=== PATIENT | male | born 1955 | race Caucasian/White ===

== ENCOUNTER → 2019-06-24 | Outpatient (CLI) | payer BC ==
--- NOTE | 2019-06-24 12:48 | US ---
EXAMINATION TYPE: US carotid duplex BILAT DATE OF EXAM: 06/24/2019 COMPARISON: NONE CLINICAL HISTORY: I10 hypertension, R42 dizziness. HTN, dizziness, headaches, left carotid bruit EXAM MEASUREMENTS: RIGHT: Peak Systolic Velocity (PSV) cm/sec ----- Right CCA: 136.6 ----- Right ICA: 126.3 ----- Right ECA: 192.4 ICA/CCA ratio: 0.9 RIGHT: End Diastole cm/sec ----- Right CCA: 26.8 ----- Right ICA: 35.7 ----- Right ECA: 30.7 LEFT: Peak Systolic Velocity (PSV) cm/sec ----- Left CCA: 125.3 ----- Left ICA: 122.1 ----- Left ECA: 157.6 ICA/CCA ratio: 1.0 LEFT: End Diastole cm/sec ----- Left CCA: 30.0 ----- Left ICA: 20.4 ----- Left ECA: 39.7 VERTEBRALS (direction of flow): Right Vertebral: Antegrade Left Vertebral: Antegrade Rhythm: Normal Mild plaque bilateral bifurcations. Upper limits normal velocities throughout as on the basis of unde rlying hypertension. IMPRESSION: Mild degree of grayscale atheromatous plaquing with no sonographically evident hemodynam ically significant stenosis within either visualized carotid arterial system. Criteria for Assigning % of Stenosis / Diameter reduction (Estimation based on the indirect measurements of the internal carotid artery velocities (ICA PSV). 1. Normal (no stenosis)=ICA PSV < 125 cm/s: ratio < 2.0: ICA EDV<40 cm/s. 2. Less than 50% stenosis=ICA PSV < 125 cm/s: ratio < 2.0: ICA EDV<40 cm/s. 3. 50 to 69% stenosis=ICA PSV of 125 to 230 cm/s: ration 2.0 ? 4.0: ICA EDV 40-100 cm/s. 4. Greater than 70% stenosis to near occlusion= ICA PSV > 230 cm/s: ratio > 4.0: ICA EDV > 100 cm/s. 5. Near occlusion= ICA PSV velocities may be low or undetectable: variable ratio and ICA EDV. 6. Total occlusion=unable to detect flow.
== END | disposition home or self-care (01) ==
LOC: RADUSWWP 11:06
PROVIDERS: ATTEND Family Medicine
DX: I65.23 Occlusion and stenosis of bilateral carotid arteries (principal); I10 Essential (primary) hypertension; E78.2 Mixed hyperlipidemia
CPT/HCPCS: 93880

== ENCOUNTER → 2023-10-07 | Outpatient (CLI) | payer MEDICARE ==
--- NOTE | 2023-10-07 14:44 | XR ---
EXAMINATION TYPE: XR chest 2V, XR ribs RT DATE OF EXAM: 10/07/2023 2:25 PM CLINICAL INDICATION:Male, 67 years old with history of [id number] CONTUSION TO THORAX; COMPARISON: Chest radiographs from 10/07/2023 TECHNIQUE: XR chest 2V, XR ribs RT Frontal and lateral views of the chest. Frontal and oblique views of the ribs. FINDINGS: Lungs/Pleura: There is no evidence of pleural effusion, focal consolidation, or pneumothorax. Pulmonary vascularity: Unremarkable. Heart/mediastinum: Cardiomediastinal silhouette is unremarkable. Musculoskeletal: No acute osseous pathology. Right rib 6 irregularity laterally possibly representing fracture.. No other acute rib fracture definitely visualized. IMPRESSION: 1. Acute right rib 6 fracture laterally suggested correlate with point tenderness. 2. Otherwise, No acute cardiopulmonary disease/process.
== END | disposition home or self-care (01) ==
LOC: RADXRYALE 14:09
PROVIDERS: ATTEND Physician Assistant
DX: S22.31XA Fracture of one rib, right side, initial encounter for closed fracture (principal)
CPT/HCPCS: 71046

== ENCOUNTER 2024-03-06 17:04 | Emergency (ER) | payer MEDICARE ==
[2024-03-06 17:31] VITALS: TEMP 98.5
--- NOTE | 2024-03-06 18:43 | ED ---
Fall HPI - General Chief Complaint: Fall Stated Complaint: Fall/Head Time Seen by Provider: 03/06/24 17:41 Source: patient Mode of arrival: ambulatory - History of Present Illness Initial Comments: This patient is a 68-year-old man with history of frequent falls. He walks with a cane. He states that he has been dizzy the past few weeks and this has resulted in falls. He fell today and struck the back of his head on a rock. No loss of consciousness. Patient complains of mild headache but no other symptoms. No neck pain. No neurologic symptoms. The patient states he is not taking blood thinners. He denies Coumadin use now. The patient not certain when his last tetanus shot had been administered. 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: yes, by family Place Fall Occurred: street Loss of Consciousness: none Prolonged Down Time?: no Symptoms Prior to Fall: dizziness Location: head Severity: mild Quality: dull Context: tripped/slipped Associated Symptoms: denies - Related Data Home Medications Medication Instructions Recorded Confirmed Gabapentin [Neurontin] 600 mg PO BID 09/06/14 09/14/14 Morphine Sulfate ER [Ms Contin] 30 mg PO QID 09/06/14 09/14/14 Trandolapril/Verapamil HCl [[place] 1 tab PO DAILY 09/06/14 09/14/14 ER 2-180 mg Tablet] Warfarin [Coumadin] 7.5 mg PO ONCE 09/14/14 09/14/14 Previous Rx's Medication Instructions Recorded Aspirin 325 mg PO BID 30 Days tab 09/16/14 Disulfiram 250 mg PO DIRECTED #60 tablet 09/16/14 HYDROcodone/APAP 10-325MG [[place] 1 - 2 each PO Q6H PRN #60 tab 09/16/14 10] Warfarin [Coumadin] 2.5 mg PO Q2D #7 tab 09/16/14 diazePAM [Valium] 5 mg PO DIRECTED #10 tab 09/16/14 diazePAM [Valium] 5 mg PO Q8H PRN #20 tab 09/16/14 Allergies Allergy/AdvReac Type Severity Reaction Status Date / Time No Known Allergies Allergy Verified 09/14/14 10:40 Review of Systems ROS Statement: Those systems with pertinent positive or pertinent negative responses have been documented in the HPI. ROS Other: All systems not noted in ROS Statement are negative. Constitutional: Denies: fever, weakness Eyes: Denies: eye pain, vision change Respiratory: Denies: cough, dyspnea Cardiovascular: Denies: chest pain, palpitations, syncope Gastrointestinal: Denies: abdominal pain, nausea, vomiting Musculoskeletal: Denies: back pain, arthralgia Skin: Denies: rash Neurological: Reports: headache. Denies: weakness, numbness, paresthesias, confusion Hematological/Lymphatic: Denies: easy bleeding Past Medical History Past Medical History: Hypertension Additional Past Medical History / Comment(s): Chronic back pain Past Surgical History: Joint Replacement Additional Past Surgical History / Comment(s): Hip replacement Past Psychological History: Depression Smoking Status: Never smoker Past Alcohol Use History: Occasional Past Drug Use History: Marijuana General Exam Limitations: no limitations General appearance: alert, in no apparent distress Head exam: Present: other (Has an approximately 5 cm stellate laceration to the posterior aspect of the scalp near the occiput. No bony tenderness or deformity.) Eye exam: Present: normal appearance, PERRL, EOMI. Absent: scleral icterus, conjunctival injection, nystagmus ENT exam: Present: normal exam Neck exam: Present: normal inspection, full ROM. Absent: tenderness, meningismus Respiratory exam: Present: normal lung sounds bilaterally. Absent: respiratory distress, wheezes, rales, rhonchi, stridor, chest wall tenderness, accessory muscle use Cardiovascular Exam: Present: regular rate, normal rhythm, normal heart sounds. Absent: systolic murmur, diastolic murmur, rubs, gallop GI/Abdominal exam: Present: soft. Absent: distended, tenderness, guarding, rebound, rigid, mass Extremities exam: Present: normal inspection, normal capillary refill. Absent: pedal edema, calf tenderness Back exam: Present: normal inspection. Absent: CVA tenderness (R), CVA tenderness (L), vertebral tenderness Neurological exam: Present: alert, oriented X3, CN II-XII intact. Absent: motor sensory deficit Skin exam: Present: warm, dry, normal color, other (Scalp laceration, see above). Absent: rash Course Vital Signs 03/06/24 03/06/24 03/06/24 17:26 17:57 19:40 Temperature 98.5 F Pulse Rate 69 65 63 Respiratory 18 18 16 Rate Blood Pressure 110/71 124/69 129/71 O2 Sat by Pulse 96 95 97 Oximetry Procedures - Laceration Laceration #1 Consent Obtained: verbal consent Indication: laceration Site: scalp Description: stellate Depth: simple, single layer Anesthetic Used: lidocaine 1% Size of Sutures: other (Elly) Technique: simple, interrupted Patient Tolerated Procedure: well, no complications Medical Decision Making - Medical Decision Making Was pt. sent in by a medical professional or institution (, [facility], [facility] [facility], urgent care, hospital, or long term...) When possible be specific @ -[No] Did you speak to anyone other than the patient for history (EMS, parent, family, police, friend...)? What history was obtained from this source @ -[No] Did you review nursing and triage notes (agree or disagree)? Why? @ -[I reviewed and agree with nursing and triage notes] Were old charts reviewed (outside hosp., previous admission, EMS record, old EKG, old radiological studies, urgent care reports/EKG's, long term records)? Report findings @ -[No old charts were reviewed] Differential Diagnosis (chest pain, altered mental status, abdominal pain women, abdominal pain men, vaginal bleeding, weakness, fever, dyspnea, syncope, headache, dizziness, GI bleed, back pain, seizure, CVA, palpatations, mental health, musculoskeletal)? @ -[Differential Musculoskeletal Muscular strain, contusion, ligament sprain, fracture, arthritis, septic arthritis, bursitis, cellulitis, muscle spasm, nerve compression, DVT, arterial occlusion, herpes zoster, electrolyte abnormality, tumor.... This is not meant to be in all inclusive list EKG interpreted by me (3pts min.). @ -[As above] X-rays interpreted by me (1pt min.). @ -[None done] CT interpreted by me (1pt min.). @ -[None done] U/S interpreted by me (1pt. min.). @ -[None done] What testing was considered but not performed or refused? (CT, X-rays, U/S, labs)? Why? @ -[None] What meds were considered but not given or refused? Why? @ -[None] Did you discuss the management of the patient with other professionals (professionals i.e. , [facility], [facility] [facility], lab, RT, psych nurse, licensed master social worker, pan tank worker, teacher, financial compliance officer, case managers)? Give summary @ -[No] Was smoking cessation discussed for >3mins.? @ -[No] Was critical care preformed (if so, how long)? @ -[No] Were there social determinants of health that impacted care today? How? (Homelessness, low income, unemployed, alcoholism, drug addiction, transportation, low edu. Level, literacy, decrease access to med. care, [facility], rehab)? @ -[No] Was there de-escalation of care discussed even if they declined (Discuss DNR or withdrawal of care, Hospice)? DNR status @ -[No] What co-morbidities impacted this encounter? (DM, HTN, Smoking, COPD, CAD, Cancer, CVA, ARF, Chemo, Hep., AIDS, mental health diagnosis, sleep apnea, morbid obesity)? @ -[None] Was patient admitted / discharged? Hospital course, mention meds given and route, prescriptions, significant lab abnormalities, going to OR and other pertinent info. @ -[Patient is 68-year-old man with fall striking his head resulting in scalp laceration and head injury. The patient clinically cleared. The patient will be able to have reevaluation and return parameters discussed. I did perform scalp laceration repair, see the note Undiagnosed new problem with uncertain prognosis? @ -[No] Drug Therapy requiring intensive monitoring for toxicity (Heparin, Nitro, Insulin, Cardizem)? @ -[No] Were any procedures done? @ -[Laceration repair, see the procedure note Diagnosis/symptom? @ -[Acute fall injury Acute scalp laceration Acute closed head injury Acute, or Chronic, or Acute on Chronic? @ -[Acute Uncomplicated (without systemic symptoms) or Complicated (systemic symptoms)? @ -[Uncomplicated Side effects of treatment? @ -[No] Exacerbation, Progression, or Severe Exacerbation? @ -[No] Poses a threat to life or bodily function? How? (Chest pain, USA, NC, pneumonia, PE, COPD, DKA, ARF, appy, cholecystitis, CVA, Diverticulitis, Homicidal, Suicidal, threat to staff... and all critical care pts) @ -[No] Disposition Clinical Impression: Fall, Head injury, Laceration Disposition: HOME SELF-CARE Condition: Good Instructions (If sedation given, give patient instructions): Head Injury (ED), Fall Prevention (ED), Head Laceration (ED) Is patient prescribed a controlled substance at d/c from ED?: No Referrals: Trent Blake DO [Primary Care Provider] - 1-2 days
[2024-03-06] MEDS: LIDOCAINE 1% INJ 10MG/ML (20 ML MDV) SQ STA (18:50)
[2024-03-06] MEDS: DIPH,PERTUS(ACELL)TETVAC-LF 0.5 ML VIAL IM ONE (19:23)
[2024-03-06 19:41] VITALS: BP 129/71; PULSE 63; RESP 16
== END 2024-03-06 19:45 | disposition home or self-care (01) ==
LOC: EC 17:04
DX: S01.01XA Laceration without foreign body of scalp, initial encounter (principal); Z23 Encounter for immunization; W01.198A Fall on same level from slipping, tripping and stumbling with subsequent striking against other object, initial encounter
CPT/HCPCS: 90715; 99283; 90471; 12002; J2003

== ENCOUNTER 2024-09-23 09:20 | Day surgery (SDC) | payer MEDICARE ==
[2024-09-22 10:25] VITALS: BMI 24.4
[2024-09-23] MEDS: IV FLUID CONTINUATION 1,000 ML IV ONE (09:46)
[2024-09-23 09:50] VITALS: TEMP 98
[2024-09-23] MEDS: LACTATED RINGERS 1,000 ML IV SCH (09:56)
[2024-09-23 09:57] LABS: Glucose,Whole Blood 175 mg/dL (70-110)
[2024-09-23] MEDS ORDERED: PROPOFOL 10 MG/ML 20 ML VIAL IV ONE (10:00)
--- NOTE | 2024-09-23 10:24 | P.PCN ---
Date of Procedure: 09/23/24 Procedure(s) Performed: BRIEF HISTORY: Patient is a 68-year-old pleasant white male scheduled for an elective colonoscopy as a part of screening for colon cancer/positive Cologuard PROCEDURE PERFORMED: Colonoscopy. PREOPERATIVE DIAGNOSIS: Screening for colon cancer/positive Cologuard. IV sedation per Anesthesia. PROCEDURE: After informed consent was obtained, the patient, was brought into the endoscopy unit. IV sedation was administered by Anesthesia under continuous monitoring. Digital rectal examination was normal. Initially the Olympus CF-160 flexible video colonoscope was then inserted in the rectum, gradually advanced into the cecum without any difficulty. Careful examination was performed as the scope was gradually being withdrawn. Ileocecal valve and the appendiceal orifice were visualized and appeared normal. Prep was excellent. Mucosa of the cecum, ascending colon, transverse colon, descending colon, sigmoid colon, and rectum appeared normal. Scattered sigmoid diverticulosis. Retroflexion was performed in the rectum and no lesions were seen. The patient tolerated the procedure well. IMPRESSION: Normal-appearing colon from rectum to cecum with no evidence of colorectal neoplasia Scattered sigmoid diverticulosis. RECOMMENDATIONS: Findings of this examination were discussed with the patient as well as his family.. He was advised to have repeat screening colonoscopy in 10 years
[2024-09-23 10:45] VITALS: BP 166/66; PULSE 70; RESP 17
== END 2024-09-23 10:57 | disposition home or self-care (01) ==
LOC: ORWHC2ENDO 09:20
PROVIDERS: ATTEND Internal Medicine Gastroenterology
DX: Z12.11 Encounter for screening for malignant neoplasm of colon (principal); K57.30 Diverticulosis of large intestine without perforation or abscess without bleeding; R19.5 Other fecal abnormalities; I10 Essential (primary) hypertension; Z79.899 Other long term (current) drug therapy
CPT/HCPCS: J2704; G0121; 45378